=== PATIENT | male | born 1970 | race Caucasian/White ===

== ENCOUNTER → 2020-04-18 | Outpatient (CLI) | payer BC ==
[2020-04-18 13:24] LABS: EOS # 0.1 (0.04-0.40); EOS % 1.2 % (0.0-4.0); HEMATOCRIT 41.5 % (42.0-52.0); HEMOGLOBIN 13.3 g/dL (13.5-18.0); LYMPH# 2.4 (1.50-4.00); MEAN CELL VOLUME 84 fl (78-100); MEAN CORPUSCULAR HEMOGLOBIN 27 pg (27-31); MEAN CORPUSCULAR HGB CONC 32 g/dL (33-37); MONO # 0.9 (0.20-0.80); NEU # 4.8 (1.40-6.50); PLATELET COUNT 323 K/mm3 (130-400); RED BLOOD COUNT 4.96 M/mm3 (4.20-5.60); RED CELL DISTRIBUTION WIDTH 13.3 % (11.5-14.5); WHITE BLOOD COUNT 8.2 K/mm3 (4.8-10.8)
[2020-04-18 13:33] LABS: ALBUMIN 4.3 g/dL (3.5-5.0); POTASSIUM 4.2 mmol/L (3.5-5.1)
[2020-04-18 13:34] LABS: CALCIUM 8.8 mg/dL (8.3-10.5)
[2020-04-18 13:36] LABS: TOTAL PROTEIN 7.1 g/dL (6.4-8.3)
[2020-04-18 13:37] LABS: TOTAL BILIRUBIN 0.3 mg/dL (0.2-1.2)
== END ==
LOC: RAD 13:04
PROVIDERS: Nurse Practitioner
DX: M19.041 Primary osteoarthritis, right hand (principal)

== ENCOUNTER → 2022-05-17 | Outpatient (CLI) | payer BC | LOC: CARDREHAB 08:04 | DX: G47.19 Other hypersomnia (principal) | CPT/HCPCS: G0399 ==

== ENCOUNTER → 2022-06-10 | Outpatient (CLI) | payer BC | LOC: LAB 07:55 | DX: N41.0 Acute prostatitis (principal); R97.8 Other abnormal tumor markers ==

== ENCOUNTER → 2022-07-15 | Day surgery (SDC) | payer BC | END | disposition home or self-care (01) | LOC: MSO 08:41 | DX: Z12.11 Encounter for screening for malignant neoplasm of colon (principal) | CPT/HCPCS: 00812; J2704; J7120 ==

== ENCOUNTER → 2023-08-19 | Outpatient (CLI) | payer BC | LOC: LAB 06:23 | DX: C61 Malignant neoplasm of prostate (principal) ==